=== PATIENT | female | born 1935 | race Caucasian/White ===

== ENCOUNTER 2019-03-01 10:58 | Inpatient (IN) | payer OTHER, BC ==
[~2019-03-01] VITALS: Ht 160 cm; Wt 68.5 kg
--- NOTE | ~2019-03-01 | D ---
[facility] [place] [address] DISCHARGE SUMMARY Name: ALANNA MAGANA Room #: 519B-B [facility] IN M.R.#: [id number] Admission: 03/01/19 ������������������ Attend Phys: Quique Maravilla DO Discharge: 03/08/19 ������������������ Date of : 31 Report #: [id number] THIS REPORT FOR: //name// CC: Quique Maravilla Lizbeth Duval DATE OF SERVICE: 03/08/2019 ATTENDING PHYSICIAN: Quique Maravilla DO NETWORK CONTROLLER: Gurpreet Vivar MD DISCHARGE DIAGNOSES: 1. 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 4. Mild neurocognitive disorder. DISCHARGE PLAN: She was discharging to her 's home. Regular diet, activity level as tolerated. No alcohol, no illicit drugs. The patient does need assistance with things like medication management, making it to appointments, transportation. Assisted living level of care was recommended; however, the family had financial problems with that and could not get organized at this time. REASON FOR ADMISSION: As follows: Suicidal ideation, delusional thinking, severe depression. The initial concerns were rather chaotic including recent hospitalization at [facility], use of oral and inhaled steroids, the patient having thoughts of killing herself and her at times. HOSPITAL COURSE: The patient was admitted to the Geriatric Psychiatry Unit. Effort was made to discontinue all steroids. The patient was left on the beta agonist albuterol for her respiratory condition. With regards to her medication treatment during the stay, risperidone was used at a dose of 0.25 mg p.o. q. 12 hours, so she got about a week of that. There was clarity of thoughts. Family meeting was held a couple of days before discharge. There was significant family discord between the patient and her biological daughter, at times the patient and her . The has 2 daughters from a prior marriage ____ as well. Recommendation is that the patient would be best supported in assisted living level setting as she is frequently quite somatically focused, has panic attacks and overall had difficulty doing activities such as the household. Options for this were reviewed. The is DPOA, decided the patient was unable to obtain at this time. Laboratories this admission are as follows: CBC: White count 8.6, H and H 15.[address] [address] DISCHARGE SUMMARY Name: ALANNA MAGANA Room #: 519B-B [facility] IN M.R.#: [id number] Admission: 03/01/19 ������������������ Attend Phys: Quique Maravilla, Discharge: 03/08/19 ������������������ Date of : 33 Report #: [id number] and 45.0, platelets 160. Chemistry, magnesium 2.0. Troponin less than 0.06. Vitamin D 25-hydroxy is 10.4, that is low. The patient will need replacement. Urine negative. PHYSICAL OF DISCHARGE: VITAL SIGNS: On the day of discharge as follows: Temperature 36.4, pulse 71, respirations 16, BP 140/73. MUSCULOSKELETAL: Normal gait and station. MENTAL STATUS EXAMINATION: ____. The patient was not suicidal or homicidal on the discharge. Attention intact. Concentration fair. Speech normal in rate, volume, tone. Thought process goal-directed. Thought content focused on discharge. Mood congruent, euthymic, fair range. Denied SI. Denied HI. Denied hopelessness, helplessness. Memory not formally tested on the day of discharge. Insight limited. Judgment fair. Fund of knowledge average range. PROGNOSIS: For the patient is very guarded as she does have issues that will require ongoing support from a responsible adult. I encouraged the patient and her to look further into the types of assisted living. ��������������������������������������������� ���������������������������������������� By: ��������������������������������������������� [id number] 0002 Quique Maravilla, DO /nt
[2019-03-01 11:10] VITALS: BP 131/73
[2019-03-01 11:31] LABS: URINE BILIRUBIN NEGATIVE (Negative); URINE BLOOD NEGATIVE (Negative); URINE CLARITY CLEAR; URINE COLOR YELLOW; URINE GLUCOSE-RANDOM* NEGATIVE (Negative); URINE KETONES NEGATIVE (Negative); URINE LEUKOCYTES-REFLEX NEGATIVE (Negative); URINE NITRITE-REFLEX NEGATIVE (Negative); URINE PROTEIN (DIPSTICK) NEGATIVE (Negative); URINE SPECIFIC GRAVITY <= 1.005 (1.005-1.035); URINE UROBILINOGEN 0.2 E.U./dl (0.2-1.0)
[2019-03-01 11:35] LABS: HEMOGLOBIN 15.1 gm/dL (12.0-15.0); MCH 28.6 pg (26.0-34.0); MCHC 33.6 g/dL (28.0-37.0); MCV 85.1 fL (80.0-100.0); RBC 5.28 mil/uL (4.20-5.00); RDW 14.1 % (10.5-14.5); WBC 8.6 thou/uL (4.0-11.0)
[2019-03-01 11:36] LABS: CALCIUM 9.5 mg/dL (8.5-10.1); CREATININE 1.2 mg/dL (0.6-1.0); POTASSIUM 4.1 mmol/L (3.5-5.1)
[2019-03-01 11:42] LABS: ALBUMIN 3.4 g/dL (3.4-5.0); TOTAL BILIRUBIN 0.9 mg/dL (<0.1-1.0); TOTAL PROTEIN 6.9 g/dL (6.4-8.2)
[2019-03-01] MEDS ORDERED: CRESTOR40 MG PO (13:17)
[2019-03-01] MEDS ORDERED: PLAVIX 75 MG TA75 M1 PO (13:17)
[2019-03-01] MEDS ORDERED: SORINE 80 MG TA80 M1 PO (13:17)
[2019-03-01] MEDS ORDERED: PROTONIX40 M1 PO (13:18)
[2019-03-01] MEDS ORDERED: ASPIR 8181 MG PO (13:18)
--- NOTE | 2019-03-01 14:19 | NUR ---
Pt reports being clostrophobic. Pt asked for staff not to shut her door "if you do I'll jump out the window.'
[2019-03-01 14:45] VITALS: BP 158/134
--- NOTE | 2019-03-01 14:59 | NUR ---
1405: Admitted to room 519-B via w/c from PCP office, accomp by dtr and . Initial admission assessment completed, pt noted with statements of non-productive cough, lung singh CTA bilat., hx of COPD. Dtr and present with numerous personal items for pt, policy for belongings explained to family and pt, visiting hours, clothes policy and code # given to dtr and . Consents signed. Dr. Maravilla here to write orders. Dr. Trotter here to see pt.
[2019-03-01 20:20] VITALS: BP 152/97
--- NOTE | 2019-03-01 21:53 | NUR ---
ASSUMED CARE OF THE PT AT 191 PM. ALERT ET CONFUSED. WALKS WITH A STEADY GAIT. HEART RATE REGULAR. LUNGS CLEAR BILATERALLY, RESP., EVEN, AND UNLABORED. +BS HEARD IN ALL 4 QUADRANTS. +PP BILATERALLY. DENIES PAIN WHEN GIVEN HER MEDICATIONS, DENIES SI/HI, A/V HALLUNICATIONS. REMAINS ON 12 MINUTE CHECKS FOR HER SAFETY.
--- NOTE | 2019-03-01 23:02 | NUR ---
CALLED THE N.P. SOUND EFFECTS PERSON AND ASKED IF THE PT COULD GET HER 0 SCHEDULED DOSE OF RISPERDONE, AND HE STATED THAT IT WAS OK TO GIVE IT NOW, WHICH WAS GIVEN ORDERED.
--- NOTE | 2019-03-02 06:38 | NUR ---
THE PT SLEPT 6.8 HOURS LAST NIGHT. TOOK HER AM MORNING MEDS WITHOUT ANY DIFFIUCLTY.
--- NOTE | 2019-03-02 07:29 | EKG ---
[address] [place] [address] ELECTROCARDIOGRAM REPORT Name: ALANNA MAGANA Room #: 519B-B ADM IN M.R.#: [id number] ������������������ Admission: 03/01/19 ������������������ Attend Phys: Quique Maravilla DO Discharge: ������������������ Date of : 33 Report #: [id number] ����������������������������������������������������������������� [id number] THIS REPORT FOR: //name// [facility] ED Test Date: 2019-03-01 Test Time: 12:42:01 Pat Name: ALANNA MAGANA Department: Room: [facility] Gender: F [employer]metic Sales: tyler : 1935 Requested By: Maddy Trinh Order Number: [id number] MD: Jim Ellis Measurements Intervals [place] Rate: 100 P: 233 TN: 187 QRS: -34 QRSD: 155 T: 141 QT: 402 QTc: 519 Interpretive Statements Sinus tachycardia Left bundle branch block Compared to ECG 11/24/2006 06:25:05 No significant change was found Electronically Signed On 03-02-2019 7:29:19 CDT by Jim Ellis [email or web address] ��������������������������������������������� <ELECTRONICALLY SIGNED> ���������������������������������������� By: Jim Ellis MD, [facility] ��������������������������������������������� 03/02/19 0729 [id number] Jim Ellis MD, [facility] /EPI
[2019-03-02 08:56] VITALS: BP 146/76
--- NOTE | 2019-03-02 10:57 | NUR ---
1000 - 1100 This morning during the recreational group Nemo look as if she was in distress, as eviedenced by a scared look on her face, breathing difficulties and sweating. I sat next to Nemo and inquired as to what was going on. She reported that she was panicing. I gently touch her back and gently rubbed her back, while I was instructing her to breath in through her nose and out of her mouth. Nemo had received a breathing treatment earlier and the medication in the breathing treatment 'causes me to panic'. I sat with her until she was able to breath normally. I asked the nurse if she had anything for anxiety. the nurse reported that there was not an order for anxiety medications. Dr. Maravilla was informed of this situation. See orders for details.
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
--- NOTE | 2019-03-02 11:47 | NUR ---
WOUND CONSULT; THIS PATIENT IS BEING TREATED FOR SHINGLES AT HOME. THE RASHES TO HER BUTTOCKS BILATERALLY ARE CONSITANT WITH HEALING SHINGLES OUTBREAK. THESE AREAS ARE MILDLY TENDER TODAY. RECOMMENDATION; FOLLOW MD'S MEDICAL REGIMEN. COVER THESE AREAS WITH A BOARDERED FOAM TO PROTECT FROM SHEARING. RN PRESENT
--- NOTE | 2019-03-02 11:50 | NUR ---
MARYSOL left a voicemail for pt to schedule a family meeting on next week. MARYSOL provided contact number and requested a return call. MARYSOL will follow-up with pt on tomorrow.
--- NOTE | 2019-03-02 12:07 | NUR ---
SW schedule a family meeting on March 06, 2019.
[2019-03-02 13:21] VITALS: BP 146/76
--- NOTE | 2019-03-02 13:30 | NUR ---
PT MEDS ACCUIRED FROM HOME BAG IN LOCKER AND SENT TO PHARMACY.
--- NOTE | 2019-03-02 13:41 | NUR ---
ASSUMED CARE AT 0700 THIS MORNING. PT. AWAKE, ALERT AND ORIENTED TIMES 2. SHE HAS BEEN COOPERATIVE WITH COMING OUT FOR MEALS AND GROUPS. OT HERE THIS MORNING AND ASSISTED HER WITH ADL'S AND BED BATH. OT REPORTED THAT PT. HAS AN ACTIVE CASE OF SHINGLES ON HER BOTTOM. THIS WAS ADDRESSED YESTERDAY BUT WOUND CARE CAME UP TO SEE PT. SORES WERE NOT OPEN OR WEEPING. HE STATED THIS MAY NEED TO BE KEPT COVERED SO SHE WILL NOT BREAK THESE OPEN AT [facility]. DR. RAHMAN ADVISED OF SAME. SHE HAS BEEN PLEASANT AND COOPERATIVE WITH ALL STAFF/PEERS. HER AND DAUGHTER CALLED AND WERE GIVEN UPDATES. PT. SPOKE WITH HER ON THE PHONE.
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
--- NOTE | 2019-03-02 16:40 | NUR ---
ASSUMED CARE AT 0700 THIS MORNING. PT. IN W/C ON THE UNIT. PT. BABBLING BUT UNABLE TO CLEARLY COMMUNICATE AT ALL TIMES. HOWEVER, SHE IS ABLE TO STATE IN WORDS HER NEED TO UTILIZE THE REST ROOM WITHOUT PROBLEMS. SHE HAS BEEN CONTINENT THIS SHIFT. SHE WAS ON THE UNIT FOR MEALS AND GROUPS. SHE HAS BEEN ON THE UNIT MUCH OF THE SHIFT WHEN NOT IN GROUPS. SHE HAS BEEN PLAYING WITH HER HOSPITAL GOWN AND SITTING ON THE EDGE OF HER W/C. SHE HAS NOT MADE AN ATTEMPT TO GET UP FROM THE CHAIR. NO AGITATION NOTED FROM HER TODAY. NO S/S OF SI/HI NOTED OR AVH.
[2019-03-02 19:34] VITALS: BP 160/93
--- NOTE | 2019-03-02 21:58 | NUR ---
Pt sitting in day room upon arrival to admission. Pt requested room temperature be decreased due to being to warm. Maintenance notified and room temp lowered. Pt compliant with medications and hs snack. Pt sitting with female peers watching tv. Blunted affect, good eye contact with conversations. Pts family called for update after pt fell asleep. Pt did not make any comments about wanting to go home. Pt did call her regarding temperature in room prior it to being fixed. Steady gait.
[2019-03-03 07:45] VITALS: BP 149/125
[2019-03-03 07:55] VITALS: BP 94/69
--- NOTE | 2019-03-03 15:48 | NUR ---
PATIENT STARTE DAY COMPLAINING OF DIZZINESS AND LIGHT HEADEDNESS. FIXATED ON RESPERIDAL - NEW MEDICATIONS - VITALS TAKEN AND 149/125 AT 0730 - TANKEN AGAIN AN HOUR LATER AND 94/69 WITH PULSE OF 76. MORNING PROGRESSED SHE CALMED DOWN AND SYMPTOMS SUBSIDED. AFTER BREATHING TREATMENT SHE STATED SIMILAR SYMPTOMS - AT THIS TIME DR. ROWAN WAS ON UNIT AND TOOK MANUAL BLOOD PRESSURE. ONCE AGAIN IT WAS ELEVATED TO 150/100. SHE LATER WAS GIVEN ATIVAN 0.5 MG. AND BLOOD PRESSURE LOWERED ONCE AGAIN. APPEARS SHE HAS PANIC ISSUES AND ANXIETY THAT ELEVATE HER B/P AND CAUSE HER ANXIOUSNESS. DURING REMAINER OF AFTERNOON SHE HAS BEEN STABLE AND NO FURTHER ISSUES. HAS BEEN OUT IN DINING AREA AND AMBULATING AROUND UNIT TO ATTEND TO HER OWN NEEDS.
[2019-03-03 20:24] VITALS: BP 151/77
--- NOTE | 2019-03-03 21:55 | NUR ---
ASSUMED CARE @ 19:00. SITTING ON THE COUCH IN THE DAY ROOM WATCHING TV WITH PEERS. DENIES SI AND HI. REPORTS WANTS TO FEEL BETTER EACH DAY. REQUESTED HS LORAZEPAM, PROVIDED WITH 2100 MEDS. WILL CONTINUE TO MONITOR Q12 FOR PATIENT SAFETY.
[2019-03-04 03:16] VITALS: BP 151/77
--- NOTE | 2019-03-04 06:17 | NUR ---
0700 MEDS PROVIDED. SLEPT 8.4 HOURS.
[2019-03-04 07:00] VITALS: BP 156/90
--- NOTE | 2019-03-04 09:03 | H ---
[facility] [place] [address] HISTORY AND PHYSICAL Name: ALANNA MAGANA Room #: 519B-B ADM IN M.R.#: [id number] Admission: 03/01/19 ������������������ Attend Phys: Quique Maravilla DO Discharge: ������������������ Date of : 33 Report #: [id number] THIS REPORT FOR: //name// CC: Quique Maravilla Lizbeth Duval DATE OF SERVICE: 03/01/2019 PSYCHIATRIC EVALUATION ATTENDING PHYSICIAN: Quique Maravilla DO MICROBIOLOGY TECHNOLOGIST: Gurpreet Vivar MD REASON FOR ADMISSION: Suicidal ideation, severe depression, delusional thinking. The patient lives at home with her . SOURCE OF INFORMATION: Internal Medicine, Emergency Room records, interview with the patient. HISTORY OF PRESENT ILLNESS: This is an 83-year-old female who is a community dwelling and lives with her . The patient is in her ninth decade of life. The patient was recently hospitalized roughly 02/17/2019 through 02/19/2019 at [facility] for respiratory concern. She was placed on inhalers, got Solu-Medrol inpatient and was on a prednisone course outpatient. The patient sometime in the days following discharge became more emotionally distraught, having thoughts of both killing herself and killing her at times. The patient had an appointment with her primary care provider this morning and expressed these and I was contacted how to facilitate a psychiatric admission. The patient told the ER she "doesn't want to live," depressed energy, decreased quality of life, physical ailments are affecting her mental health and she is getting frustrated with life. She is ready to check out and states that one of these days, she might take "every pill in the house." Her spouse is afraid to leave her alone in the house due to concerns of what she may do to herself while she is alone. She has outbursts of anger due to her increased frustration and she has threatened to kill her spouse with a gun, not to keep in the house. She intermittently wants to kill everyone. She also reports that the voice in the home told her to jump out of the window. Physical complaints include constant nausea, constipation, generalized weakness, recently had an esophageal dilatation. PAST MEDICAL AND SURGICAL HISTORY: Includes [place] and stent in 08/31/1996, right mastectomy in 06/05/2004, 10/2006 diagnosed with bladder cancer, heart catheterization 11/23/2006 prior to starting cancer treatment, hysterectomy in 05/08/1982. Medical history of hypertension, hypercholesterolemia, tuberculosis as a child, chronic bronchitis with status emphysema, allergic reactions to [facility] [address] [place] [address] HISTORY AND PHYSICAL Name: ALANNA MAGANA Room #: 519B-B [facility] IN ..#: [id number] Admission: 03/01/19 ������������������ Attend Phys: Quique Maravilla DO Discharge: ������������������ Date of : 33 Report #: [id number] LATEX, osteoarthritis. Additionally, regarding the heart catheterization, she had PTCA; stents to LAD, bare metal 3 stents. HOME MEDICATIONS: Plavix 75 mg p.o. daily, rosuvastatin 40 mg p.o. daily, sotalol 40 mg p.o. b.i.d., pantoprazole 40 mg p.o. b.i.d. Aspirin has been discontinued. ALLERGIES: Numerous and include, CHLORPROMAZINE; CIMETIDINE; CODEINE; IBUPROFEN; IODINE; NIACIN; PHENOTHIAZINES; PROCHLORPERAZINE; PROPOXYPHENE; COMPAZINE; THORAZINE; STELAZINE; DARVOCET; DARVON; CODEINE; TAGAMET; SYMONE; MOTRIN, actually MOTRIN causes suicidal thoughts, dizziness; IBUPROFEN hives, itching; NIACIN lips and tongue swelling; CORTISONE swelling, IODINE DYE could not breathe, lip swelling. SOCIAL HISTORY: She has used cigarettes in the past. Denied alcohol. Denied recreational drug use. REVIEW OF SYSTEMS: From the Emergency Room included: CONSTITUTIONAL: Denies fever, chills, malaise or unexplained weight change. EYES: Denies eye pain, visual change or discharge. HENT: Denies hearing changes, ear drainage, ear infections, ear pain, neck pain or neck stiffness. RESPIRATORY: Denies cough, shortness of breath, hemoptysis or respiratory distress. CARDIOVASCULAR: Denies chest pain, chest pain with exertion or edema. GASTROINTESTINAL: Denies abdominal pain, vomiting or diarrhea. GENITOURINARY: Denies burning, frequency or dysuria. MUSCULOSKELETAL: Denies back pain, joint pain, muscle weakness or myalgias. SKIN: Denies rash. NEUROLOGIC: Denies headache, loss of consciousness. PSYCHIATRIC: As above. Otherwise, 10-point review of systems negative. PHYSICAL EXAMINATION: VITAL SIGNS TODAY: Pulse ox 97%, BP 131/73, temperature 36.7, pulse 76, respirations 17. Physical exam was grossly normal. EKG was done and showed a QTC of 519, QT 402, VA interval 187, rate 100 and there was a left bundle-branch block. MUSCULOSKELETAL: Normal gait and station. MENTAL STATUS EXAMINATION: This is a well-developed, disheveled female appearing stated age. Attention limited. Concentration limited. Speech, increased rate and volume. Thought process linear and goal-directed. Thought content focused on leaving the hospital tomorrow. concered about medications that will harm her. Some psychomotor agitation, no psychomotor retardation. Endorsed auditory hallucination. Denied visual, denied tactile hallucinations. Reported being depressed. Mood congruent restricted. Some helplessness, some [facility] [address] [place] [address] HISTORY AND PHYSICAL Name: ALANNA MAGANA Room #: 519B-B ADM IN .R.#: [id number] Admission: 03/01/19 ������������������ Attend Phys: Quique Maravilla DO Discharge: ������������������ Date of : 33 Report #: [id number] hopelessness. Memory not formally tested today. Insight limited. Judgment limited. Fund of knowledge below average. FORMULATION: An 83-year-old male brought in for suicidal ideation, homicidal ideation and recent psychosis, likely attributable to a regimen of corticosteroids. DIAGNOSES: Psychosis, unspecified, suspect mood disorder due to general medical condition, namely her respiratory disease and debility. PLAN: Evaluate, stabilize, obtain collateral. Regarding medications, Plavix is continued at 75 mg daily, sotalol 40 mg p.o. b.i.d., atorvastatin 80 mg p.o. at bedtime, budesonide 0.25 mg RT b.i.d. The patient was ordered to have a q. 4 hours p.r.n. albuterol treatments, usual PRNs. I think given the patient's recent steroid psychosis and irritability, it would be reasonable to start her on a low dose of Risperdal at 0.25 mg twice per day. ESTIMATED LENGTH OF STAY: 10-14 days. STRENGTHS: She is insured. WEAKNESSES: Advanced age, number of medical complications, possibility of an underlying dementia. So plan will be to evaluate, stabilize, complete cognitive screening. Medical consultation by hospitalist. ��������������������������������������������� <ELECTRONICALLY SIGNED> ���������������������������������������� By: Quique Maravilla DO ��������������������������������������������� 03/04/19 0903 1900 02 Quique Maravilla DO /nt
--- NOTE | 2019-03-04 10:33 | NUR ---
ASSUMED CARE AT 0700 THIS MORNING. UP ON UNIT FOR MEALS, GROUPS. IS INTERACTIVE WITH PEERS/STAFF. MEDS TAKEN WITHOUT ISSUES. DENIES SI/HI OR AVH OF THIS WRITING.
--- NOTE | 2019-03-04 11:08 | NUR ---
SW met with pt and completed the SLUMS assess, she scored a 16. She was very talkative and friendly. Family arrived and she spent time with them.
[2019-03-04 19:23] VITALS: BP 144/97
[2019-03-04 21:31] VITALS: BP 144/97
--- NOTE | 2019-03-05 04:05 | NUR ---
PATIENT SLEEPING SOUNDLY. PATIENT WAS IRRITABLE EARLIER IN THE EVENING. WAS UP VISITING WITH ANOTHER RESIDENT AND THEY WERE CONCERNED ABOUT WHERE THE TV REMOTE WAS. BOTH HAD A TV SHOW THEY WANTED TO WATCH AT 2100. EXPLAINED THAT THEY STILL HAD 45 MINUTES UNTIL 2100 AND WE CAN FIND THE REMOTE BY THEN. PATIENT'S GOAL IS TO BE OUT IN THE DAYROOM BY 6AM SO SHE CAN WATCH "[facility]". RESPIRATORY TX GIVEN. RESIDENT WITH CTA LUNG SOUNDS BUT RIGHT UPPER LUNG LOBE DOES HAVE DIMIMISHED BREATH SOUNDS. LORAZEPAM 0.5MG GIVEN AT 2029. PT STATES SHE HAD 3 LOOSE STOOLS AFTER SUPPER TONIGHT. STATES SHE ATE FISH AND PEAS AND CARROTS. NO OTHER STOOLS FOR THIS SHIFT SO FAR. REPORT STATES THAT PT STILL NEEDS A SWALLOW STUDY WITH A FORMAL VIDEO DONE. WILL CONTINUE TO MONITOR.
[2019-03-05 07:15] VITALS: BP 124/68
--- NOTE | 2019-03-05 17:59 | NUR ---
ASSUMED CARE AT 0700 THIS MORNING. PT. UP AND ON THE UNIT. HER AND A PEER WANTED TO GET UP EARLY TO WATCH THE [facility] (TV SHOW) TOGETHER. UP ON THE UNIT FOR MEALS AND GROUPS. SHE HAS BEFRIENDED A PEER AND THEY WATCH TV TOGETHER AND TALK. SHE HAS BEEN COMPLIANT WITH MEDICATIONS. SHE CONTINUES TO APPEAR DEPRESSED. SHE STATED HER DAUGHTER (WHO HAS HAD SOME MENTAL ISSUES IN THE PAST) HAS BEEN TELLING HER THAT WHEN SHE DIES THE DAUGHTER WANTS TO GO WITH HER. THE PT. FEELS THIS HAS PUT A BURDEN ON HER. SHE HAS TOLD THE DAUGHTER SHE WILL NOT LIVE FOREVER AND SHE NEEDS TO LEARN TO EXCEPT THIS. NO PROBLEMS NOTED FROM HER TODAY. DENIES SI/HI, AVH. THIS AFTERNOON AT 1600 SHE HAD A BREATHING TREATMENT. AT 1700 SHE WALKED UP TO THIS WHEEL MOLDER STATING SHE IS HAVING A HARD TIME BREATHING AND THOUGHT SHE MAY NEED ANOTHER BREATHING TREATMENT. SHE WAS GIVEN AN PRN ATIVAN FOR ANXIETY. DR. RAHMAN NOTIFIED OF PT. C/O AND ASKED IF IT IS TOO SOON TO HAVE ANOTHER BREATHING TREATMENT. STATED THAT IT WAS ALRIGHT. RT CALLED AND ASKED TO GIVE HER ANOTHER TREATMENT. THIS WAS COMPLETED. PT. WATCH BY STAFF TO SEE HOW HER BREATHING IS. NO BREATHING DISTRESS NOTED. AT 1730 SHE STATED SHE FELT BETTER. NO FURTHER PROBLEMS NOTED. PT. WATCHING OF THIS WRITING. DAUGHTER DID CALL FOR AN UPDATE TODAY.
[2019-03-05 19:50] VITALS: BP 135/76
--- NOTE | 2019-03-05 22:48 | NUR ---
ASSUMED CARE OF THE PT AT 191 PM. THE PT WAS SITTING IN THE DAYROOM IN THE WHEELCHAIR, WHEN THIS STONE SPLITTER CAME ON DUTY. ALERT ET ORIENTED X 1. HEART RATE REGULAR. LUNGS CLEAR BILATERALLY, RESP., EVEN AND UNLABORED. DENIES PAIN AT THIS TIME. REMAINS ON 12 MINUTE CHECKS FOR HER SAFETY.
[2019-03-06 07:10] VITALS: BP 151/91
--- NOTE | 2019-03-06 10:25 | NUR ---
ASSUMED CARE OF PT AT 0700. ASSESSMENT CHARTED. A&O TO PERSON AND PLACE. PT REFUSED AM RISPERIDONE, PHYSICIAN AWARE. ALL OTHER MEDS GIVEN ORDERED. WILL CONTINUE TO MONITOR FREQUENTLY.
--- NOTE | 2019-03-06 15:55 | NUR ---
MARYSOL, Dr. Maravilla, and nurse internet marketing manager with the pt family concerning housing. Dr. Maravilla reccommended that the pt be placed in [place]. Pt Mr. Barnes mention that he did not want the pt to be [place]. Pt stated that he would like to be independent, and live comfortably. SW suggested that he consider a AL due to the pt health declining, and overall her wellbeing. SW explained that [place] have [place] money in [place] due to his need more care. MARYSOL explained with a AL the pt will have a nurse, OB/GYN DOCTOR, and more. SW will assisst the family with looking at AL's that are in [place], [place], and [place], [place]. MARYSOL will follow-up with pt on tomorrow.
[2019-03-06 19:59] VITALS: BP 159/82
[2019-03-07 01:02] VITALS: BP 159/82
--- NOTE | 2019-03-07 05:58 | NUR ---
PATIENT WITH DRY COUGH AROUND 2140PM. LUNGS CTA, BP 151/85, P85,18,96% ra 02, 98.1. PATIENT DRINKING WATER, EATING ITAILIAN ICE, HAD A MINT, AND A RESPIRATORY TREATMENT WITH A CEPACOL TO FOLLOW THAT SEEMED TO HELP CALM THE COUGH. PT SLEPT THRU NIGHT AFTER THIS. PT STATES DOES NOT WANT TO TAKE RESPIRADOL. NONE ORDERED FOR TONIGHT. WILL SEE HOW SHE TAKES IT THIS MORNING. SHE HAS TRACE EDEMA IN HER RIGHT FOOT. DENIES PAIN. ALL OTHER ASSESSMENT WNL.
[2019-03-07 08:49] VITALS: BP 140/73
--- NOTE | 2019-03-07 10:13 | NUR ---
Late Note from 03/06/19. During the family meeting one of Nemo's step-daughters asked for a handout on dementia. I went to the [facility] Web site and printed out information on dementia and gave the information to her.
--- NOTE | 2019-03-07 15:51 | NUR ---
ASSUMED CARE THIS MORNING AT 0700. PT. UP ON THE UNIT FOR BREAKFAST. SHE IS VERY DEPRESSED AND UPSET TODAY BECAUSE IT IS HER BIRTHDAY AND SHE IS NOT HAPPY ABOUT BEING HERE. SHE HAS CALLED HER NUMBEROUS TIMES TODAY BECAUSE SHE IS NOT ALLOWED TO SIGN AMA. THIS ABLE SEAMAN STATED SHE HAS WRITE HER INTENT ON A PIECE OF PAPER AND GIVE IT TO THE SW FOR ACTION. SPOKE TO THIS RN COMPLAINING THAT THE PT. HAS NOT BEEN ALLOWED TO LEAVE OF NOW. HE WAS IRRITABLE AND DEMANDING. THE PATIENT ALSO YELLING AT THE STAFF. DR. RAHMAN AND CAROL Fiore IT APPLICATION DEVELOPMENT MANAGER ALSO NOTIFIED OF EVENTS.
[2019-03-07 16:45] VITALS: BP 140/73
[2019-03-07 19:30] VITALS: BP 155/80
[2019-03-08 02:52] VITALS: BP 155/80
--- NOTE | 2019-03-08 05:05 | NUR ---
PATIENT UP IN DAYROOM I CAME ONTO SHIFT. SHE WAS LAUGHING AND CELEBRATING HER EXCITEMENT OF HER BIRTHDAY THAT DAY WITH 2 OTHER PT'S. ASSESSMENT OF PATIEINT WNL. BREATHING TX DONE AT AND CEPACOL LOZENGE GIVEN FOR DRY THROAT. VISITED WITH PATIENT AND SHE WAS EAGER AND ANXIOUS SHE SHARED THAT 2 PEOPLE WERE COMING 03/08/19 TO ASSESS HER FOR PLACEMENT IN ASSISTED LIVING. SHE HAD ALL HER CLOTHES IN ROOM PACKED IN A PAPER BAG AND BELIEVES SHE IS GOING TO D/C TODAY. PT'S RESPIRADOL WAS DC/D. PATIENT SLEPT THRU NIGHT.
[2019-03-08 09:21] VITALS: BP 138/75
--- NOTE | 2019-03-08 11:46 | NUR ---
Assess for length of stay. Admit to HU for SI. Has been tolerating diet, intake records 50-100%. Requires consistency modification for mastication and ST has been following. Wts are stable. Low nutrition risk
--- NOTE | 2019-03-08 13:21 | NUR ---
Recreational Therapy Weekly Progress Note Date of Admission: 03/01/19 Date of Activity Therapy Assessment: 03/04/19 Activity Goal: Manage anxiety symptoms Initial Goal: 2 Group activities/day Weekly progress towards goal: On track Group participation level: Full Behaviors observed: Patient has attended all groups offered, with the exception of two. Patient exhibits better control over her anxiety and is able to identify symptoms and coping tools. Patient has also developed social relationships within the milieu, though sometimes exhibiting poor social boundaries. Plan: No change towards goal
--- NOTE | 2019-03-08 13:58 | NUR ---
ASSUMED CARE AT 0700 THIS MORNING. SHE HAS BEEN INTERACTING WITH PEERS TODAY. SHE HAS CAME TO THE NURSES STATION TELLING THIS RN THAT SHE IS NEEDING TO "FIND HER TODAY". SHE WAS REMINDED HE IS NOT HERE. THAT HELPED SATISY HER AND SHE WENT TO TALK WITH OTHER PEERS AT THAT TIME. HAS BEEN COMPLIANT WITH TAKING MEDICATIONS, GOING TO GROUPS, AND EATING ON THE UNIT. SHE REMAINS DEPRESSED BUT IN BETTER SPIRITS THAN SHE WAS YESTERDAY. SHE ASKED FOR A THROAT LONZENGE AND RECEIVED ONE FOR "DRY THROAT THAT MAKES HER COUGH".
[2019-03-08] MEDS ORDERED: ATIVAN0.5 MG PO (16:42)
[2019-03-08] MEDS ORDERED: HYDROCHLOROTH12.5 M1 PO (16:43)
[2019-03-08] MEDS ORDERED: ALBUTEROL2.5 MG/0.5 INH (16:43)
--- NOTE | 2019-03-08 17:00 | NUR ---
Patient Name: ALANNA MAGANA Admission Date: 03/01/19 DISCHARGE PLAN: Pt edda d/c home with family. Care Assessment: Pt was assessed by Dr. Maravilla, and diagnosed with Major Neurocognitive Disorder. Level II Assessment: None Transportation: Pt will be transported home by . Special Instructions/Notes: Pt will need a memory care assisted living. DISCHARGE TO FACILITY: Home Facility: Phone: Fax: Address: Contact Name: Phone: PCP: [facility] Psychiatrist: [facility].
[2019-03-08 17:01] VITALS: BP 140/73
--- NOTE | 2019-03-10 14:35 | NUR ---
Labs showed that Nemo's Vit D level was low. I called and spoke to her to inform them Dr. Maravilla recommended that Nemo start on Vit D supplement.
--- NOTE | 2019-03-10 15:48 | NUR ---
I received a phone call from Scarlett, , one of nemo's [facility]. She was inquiring about risperone. I informed Scarlett that medication was discontinued as Nemo had informed staff it made her nauseated. Scarlett all was inquiring about finding psychiatric resources to help Nemo. I transferred the call to the . Please see notes for details. Scarlett was wanting to know about discharge dx and discharge status. I gave her that information as well.
== END 2019-03-08 18:03 | disposition home or self-care (01) | DRG 881 ==
LOC: ER 10:58 → EROBS 12:31 → SBH 12:31
PROVIDERS: Physician Assistant; ADMIT Psychiatry & Neurology Psychiatry
DX: F32.9 Major depressive disorder, single episode, unspecified (principal); R45.851 Suicidal ideations; I10 Essential (primary) hypertension; E78.00 Pure hypercholesterolemia, unspecified; R45.850 Homicidal ideations; Z62.820 Parent-biological child conflict; F41.9 Anxiety disorder, unspecified; I25.10 Atherosclerotic heart disease of native coronary artery without angina pectoris; I73.9 Peripheral vascular disease, unspecified; K21.9 Gastro-esophageal reflux disease without esophagitis; J43.9 Emphysema, unspecified; M81.0 Age-related osteoporosis without current pathological fracture; Z63.0 Problems in relationship with spouse or partner; I25.2 Old myocardial infarction; Z95.5 Presence of coronary angioplasty implant and graft; Z95.1 Presence of aortocoronary bypass graft; Z90.11 Acquired absence of right breast and nipple; Z87.891 Personal history of nicotine dependence; Z85.51 Personal history of malignant neoplasm of bladder; Z90.710 Acquired absence of both cervix and uterus; Z79.02 Long term (current) use of antithrombotics/antiplatelets; Z79.899 Other long term (current) drug therapy; Z88.8 Allergy status to other drugs, medicaments and biological substances; Z91.041 Radiographic dye allergy status; G31.84 Mild cognitive impairment of uncertain or unknown etiology; F28 Other psychotic disorder not due to a substance or known physiological condition
CPT/HCPCS: 10880